=== PATIENT | female | born 1990 | race Hispanic/Latino ===

== ENCOUNTER 2021-02-10 16:55 | Outpatient (CLI) | payer MEDICAID | END 2021-02-11 10:00 | disposition home or self-care (01) | LOC: LAB 16:55 → APU 02-11 11:12 | PROVIDERS: ATTEND Advanced Practice Midwife | DX: O26.893 Other specified pregnancy related conditions, third trimester (principal); Z67.11 Type A blood, Rh negative; Z3A.28 28 weeks gestation of pregnancy | CPT/HCPCS: 86850; 86900; 86901; 96372; J2790 ==

== ENCOUNTER 2021-04-28 12:17 | Inpatient (IN) | payer MEDICAID ==
[2021-04-28] MEDS ORDERED: LACTATED RINGERS 2,000 ML ONE (15:02)
[2021-04-28] MEDS ORDERED: ePHEDrine SULFATE 50 MG/1 ML INJ IV PRN ×2 (15:26→16:42)
[2021-04-28] MEDS ORDERED: OXYTOCIN 10 UNIT/1 ML INJ IM PRN (15:26)
[2021-04-28] MEDS ORDERED: BUTORPHANOL 2 MG/1 ML INJ IV PRN (15:26)
[2021-04-28] MEDS ORDERED: ACETAMINOPHEN 325 MG TAB PO PRN ×2 (15:26→22:36)
[2021-04-28] MEDS ORDERED: miSOPROStol 200 MCG TAB PR PRN (15:26)
[2021-04-28] MEDS ORDERED: TERBUTALINE 1 MG/1 ML INJ SUB-Q PRN (15:26)
[2021-04-28] MEDS ORDERED: fentaNYL 100 MCG/2 ML INJ IV PRN (15:26)
[2021-04-28] MEDS ORDERED: LOPERAMIDE 2 MG CAP PO PRN (15:26)
[2021-04-28] MEDS ORDERED: CARBOPROST TROMETHAMINE 250 MCG/1 ML INJ IM PRN (15:26)
[2021-04-28] MEDS ORDERED: LIDOCAINE (2%) 20 MG/1 ML VIAL 20 ML MDV INFILTRATI ONE (15:26)
[2021-04-28] MEDS ORDERED: NalbUPHINE 10 MG/1 ML INJ IV PRN ×2 (15:26→16:42)
[2021-04-28] MEDS ORDERED: MINERAL OIL 30 ML ORAL LIQD PO PRN (15:26)
[2021-04-28] MEDS ORDERED: METHYLERGONOVINE MALEATE 0.2 MG/ML VIAL IM PRN (15:26)
[2021-04-28] MEDS ORDERED: LACTATED RINGERS 1,000 ML IV SCH (15:30)
[2021-04-28 15:44] LABS: Hematocrit 37.6 % (30.3-42.9); Hemoglobin 12.7 gm/dl (10.1-14.3); Mean Corpuscular HGB Conc 34 % (30-34); Mean Corpuscular Volume 87 fl (79-97); Platelet Count 260 K/mm3 (140-440); Red Cell Distribution Width 15.3 % (13.2-15.2)
[2021-04-28] MEDS ORDERED: OXYTOCIN DRIP 30 UNITS/500 ML BAG IV SCH ×2 (16:00)
[2021-04-28] MEDS ORDERED: ONDANSETRON 4 MG/2 ML INJ IV PRN ×2 (16:42→22:35)
[2021-04-28] MEDS ORDERED: LACTATED RINGERS 250 ML IV SOLN IV ONE (16:42)
[2021-04-28] MEDS ORDERED: NALOXONE 2 MG/2 ML INJ IV PRN (16:42)
[2021-04-28] MEDS ORDERED: diphenhydrAMINE 50 MG/ML VIAL IV PRN (16:42)
--- NOTE | 2021-04-28 16:43 | Anesthesia Consultation ---
Anesthesia Consult and Med Hx Date of service: 04/28/21 - Airway Anesthetic Teeth Evaluation: Good ROM Head & Neck: Adequate Mental/Hyoid Distance: Adequate Mallampati Class: Class II Intubation Access Assessment: Probably Good - Pulmonary Exam CTA: Yes - Cardiac Exam Cardiac Exam: RRR - Pre-Operative Health Status ASA Pre-Surgery Classification: ASA2 Proposed Anesthetic Plan: Epidural - Pulmonary Hx Smoking: No Hx Asthma: No Hx Sleep Apnea: No - Cardiovascular System Hx Hypertension: No Hx Heart Attack/AMI: No Hx Angina: No - Central Nervous System Hx Seizures: No Hx Psychiatric Problems: No - Gastrointestinal Hx Gastroesophageal Reflux Disease: No - Endocrine Hx Renal Disease: No Hx Liver Disease: No Hx Insulin Dependent Diabetes: No Hx Non-Insulin Dependent Diabetes: No Hx Hypothyroidism: No Hx Hyperthyroidism: No - Hematic Hx Anemia: No Hx Sickle Cell Disease: No - Other Systems Hx Alcohol Use: No Hx Obesity: Yes
--- NOTE | 2021-04-28 16:44 | Progress Note ---
Labor Epidural - Labor Epidural Start Time: 16:27 Stop Time: 16:35 Performed by:: LISA GRACIA Procedure: Patient is requesting epidural for labor and pain. H&P, labs were reviewed. Patient IDed, H&P reviewed, all questions and concerns were answered, and consent was signed. Timeout was performed at bedside. Patient in sitting position. Sterile prep and drape was performed. 3ml of 1% lidocaine skin wheal at L[3]- L [4]. 18-gauge [employer] epidural needle was advanced to loss of resistance with air technique 7cm. Negative CSF negative blood. Epidural catheter advanced to [12] centimeters. [negative] Aspiration [negative] test dose. Sterile dressing applied. Patient tolerated procedure.
[2021-04-28] MEDS ORDERED: fentaNYL-BUPIV 2 MCG/ML-0.125% 200 MCG/100 ML BAG EPIDURAL SCH (17:00)
--- NOTE | 2021-04-28 17:20 | History and Physical Report ---
History of Present Illness Date of examination: 04/28/21 Date of admission: April 28, 2021 Chief complaint: uterine contractions History of present illness: 31-year-old -0-0-1 at 39+5 weeks who presents to labor and delivery triage with a complaint of regular uterine contractions. The patient was initially 3 cm and progressed to 5 cm. She denied leakage of fluid. Her course is complicated by late presentation to care at 18 weeks estimated gestational age. The patient has a history of a prior delivery and elects to undergo a trial of labor. She has been counseled for delivery. Patient is GBS negative Past History Past Medical History: no pertinent history Past Surgical History: section Social history: single - Obstetrical History Expected Date of Delivery: 04/30/21 Actual Gestation: 39 Week(s) 5 Day(s) : 2 Para: 1 Hx # Term Pregnancies: 1 Number of Pregnancies: 0 Spontaneous Abortions: 0 Induced : 0 Number of Living Children: 1 Medications and Allergies Allergies Allergy/AdvReac Type Severity Reaction Status Date / Time No Known Allergies Allergy Verified 04/28/21 13:04 Active Meds: Active Medications Acetaminophen (Acetaminophen 325 Mg Tab) 650 mg PO Q4H PRN PRN Reason: Pain, Mild (1-3) Butorphanol Tartrate (Butorphanol 2 Mg/1 Ml Inj) 2 mg IV Q2H PRN PRN Reason: Pain , Severe (7-10) Carboprost Tromethamine (Carboprost Tromethamine 250 Mcg/1 Ml Inj) 250 mcg IM ONCE PRN PRN Reason: Uterine Bleeding Diphenhydramine HCl (Diphenhydramine 50 Mg/Ml Vial) 12.5 mg IV Q2H PRN PRN Reason: Itching Ephedrine Sulfate (Ephedrine Sulfate 50 Mg/1 Ml Inj) 10 mg IV Q2M PRN PRN Reason: Hypotension Fentanyl (Fentanyl 100 Mcg/2 Ml Inj) 100 mcg IV Q2H PRN PRN Reason: Pain,Severe (7-10) LABOR PAIN Last Admin: 04/28/21 16:17 Dose: 100 mcg Documented by: Oxytocin/Sodium Chloride (Pitocin/Ns 30 Unit/500ml) 30 units in 500 mls @ 2 mls/hr IV TITR MARITZA; Protocol Lactated Ringer's (Lactated Ringers) 1,000 mls @ 125 mls/hr IV DIRECT MARITZA Last Admin: 04/28/21 16:39 Dose: 125 mls/hr Documented by: Oxytocin/Sodium Chloride (Pitocin/Ns 30 Unit/500ml) 30 units in 500 mls @ 40 mls/hr IV TITR MARITZA; Protocol Fentanyl/Bupivacaine/Sodium Chlor (Fentanyl-Bupiv 2 Mcg/Ml-0.125%) 200 mcg in 100 mls @ 12 mls/hr EPIDURAL TITR MARITZA; Protocol Loperamide HCl (Loperamide 2 Mg Cap) 2 mg PO ONCE PRN PRN Reason: give with Hemabate Methylergonovine Maleate (Methylergonovine Maleate 0.2 Mg/Ml Vial) 0.2 mg IM ONCE PRN PRN Reason: Uterine Bleeding Mineral Oil (Mineral Oil 30 Ml Oral Liqd) 30 ml PO QHS PRN PRN Reason: Constipation Misoprostol (Misoprostol 200 Mcg Tab) 800 mcg ND ONCE PRN PRN Reason: Uterine Bleeding Nalbuphine HCl (Nalbuphine 10 Mg/1 Ml Inj) 2.5 mg IV Q2H PRN PRN Reason: Itching Naloxone HCl (Naloxone 2 Mg/2 Ml Inj) 0.2 mg IV Q5M PRN PRN Reason: Respiratory sedation Ondansetron HCl (Ondansetron 4 Mg/2 Ml Inj) 4 mg IV Q8H PRN PRN Reason: Nausea And Vomiting Oxytocin (Oxytocin 10 Unit/1 Ml Inj) 10 unit IM ONCE PRN PRN Reason: Uterine Bleeding Terbutaline Sulfate (Terbutaline 1 Mg/1 Ml Inj) 0.25 mg SUB-Q ONCE PRN PRN Reason: Hyperstimulation/Hypertonicity Review of Systems All systems: negative Genitourinary: pelvic pain, contractions - Vital Signs Vital signs: Vital Signs Pulse BP 80 123/68 04/28/21 12:55 04/28/21 12:55 Temp Pulse Resp BP Pulse Ox 98.2 F 72 16 95/62 100 04/28/21 14:13 04/28/21 17:15 04/28/21 14:13 04/28/21 17:11 04/28/21 17:15 - Physical Exam Breasts: Positive: deferred Cardiovascular: Regular rate Lungs: Positive: Clear to auscultation Abdomen: Positive: normal appearance - Obstetrical Cervical Dilatation: 5 Results Result Diagrams: 04/28/21 Unknown Abnormal lab results 04/28/21 Range/Units Unknown WBC 11.2 H (4.5-11.0) K/mm3 RDW 15.3 H (13.2-15.2) % All other labs normal. Assessment and Plan - Patient Problems (1) Active labor at term Current Visit: Yes Status: Acute Plan to address problem: will admit patient to labor and delivery for trial of labor (2) Previous delivery affecting Current Visit: Yes Status: Acute
[2021-04-28] MEDS ORDERED: MAGNESIUM HYDROXIDE (MOM) ORAL LIQD UDC PO PRN (22:35)
[2021-04-28] MEDS ORDERED: PROMETHAZINE 25 MG TAB PO PRN (22:35)
[2021-04-28] MEDS ORDERED: LANOLIN/ZINC/DIMETHICONE (LANSINOH) 7 GM TP PRN (22:35)
[2021-04-28] MEDS ORDERED: WITCH HAZEL/ GLYCERIN PAD TP PRN (22:35)
[2021-04-28] MEDS ORDERED: PROMETHAZINE 25 MG RECT SUPP PR PRN (22:35)
[2021-04-28] MEDS ORDERED: diphenhydrAMINE 25 MG CAP PO PRN (22:35)
[2021-04-28] MEDS ORDERED: HYDROcodone/ACETAMINOPHEN 5-325 MG TAB PO PRN (22:36)
--- NOTE | 2021-04-28 22:39 | Procedure Note ---
OB Delivery Note - Delivery Date of Delivery: 04/28/21 Surgeon: OLGA CARREON Estimated blood loss: 300cc - Vaginal Delivery presentation: vertex Delivery position: OA Delivery monitor: external FHT, external uterine, internal uterine Route of delivery: Delivery placenta: spontaneous Delivery cord: nuchal cord, 3 umbilical vessels Episiotomy: none Delivery laceration: none Anesthesia: epidural - A at 1 minute: 8 at 5 minutes: 9 (Weight 3.56 kg) Infant Gender: Female
[2021-04-29] MEDS: IBUPROFEN 600 MG TAB PO SCH ×4 (04:00→18:02)
--- NOTE | 2021-04-29 08:26 | Progress Note ---
Assessment and Plan A: ~10 hrs s/p[ at term P: Routine care Subjective - Subjective Date of service: 04/29/21 Principal diagnosis: s/p at term Interval history: Pt with no unusual complaints this morning. Patient reports: appetite normal, voiding normally, pain well controlled, no dizzy ambulation : doing well Objective - Vital Signs Latest vital signs: Vital Signs Temp Pulse Resp BP BP Pulse Ox Pulse Ox 04/29/21 04:00 18 04/29/21 01:13 98.7 F 79 18 92/43 96 04/29/21 00:50 96 04/28/21 23:50 84 95 04/28/21 23:45 79 96 04/28/21 23:41 79 92/50 04/28/21 23:40 82 96 04/28/21 23:35 89 95 04/28/21 23:30 95 H 98 04/28/21 23:27 93 H 92/51 04/28/21 23:25 87 98 04/28/21 23:20 88 96 04/28/21 23:15 93 H 95 04/28/21 23:12 87 94 04/28/21 23:10 78 97 04/28/21 23:05 92 H 99 04/28/21 23:00 89 98 04/28/21 22:56 85 98/53 04/28/21 22:55 89 100 04/28/21 22:51 97.6 F 19 04/28/21 22:50 98 H 97 04/28/21 22:45 87 99 04/28/21 22:41 95 H 96/50 04/28/21 22:40 102 H 98 04/28/21 22:35 102 H 98 04/28/21 22:33 96 H 102/50 04/28/21 22:31 104 H 94 04/28/21 22:30 99 H 98 04/28/21 22:25 127 H 98 04/28/21 22:20 127 H 96 04/28/21 22:15 116 H 99 04/28/21 22:10 86 99 04/28/21 22:05 95 H 98 04/28/21 22:00 97 H 99 04/28/21 21:55 102 H 99 04/28/21 21:53 66 92 04/28/21 21:50 94 H 98 04/28/21 21:45 84 98 04/28/21 21:40 82 100 04/28/21 21:35 95 H 97 04/28/21 21:33 87 121/52 04/28/21 21:30 86 98 04/28/21 21:25 81 98 04/28/21 21:20 82 99 04/28/21 21:15 93 H 99 04/28/21 21:10 102 H 98 04/28/21 21:05 93 H 99 04/28/21 21:00 89 99 04/28/21 20:55 80 97 04/28/21 20:50 64 98 04/28/21 20:45 84 98 04/28/21 20:40 64 98 04/28/21 20:35 64 99 04/28/21 20:30 65 99 04/28/21 20:27 72 91 04/28/21 20:25 76 98 04/28/21 20:20 62 98 04/28/21 20:15 62 99 04/28/21 20:10 74 98 04/28/21 20:05 69 98 04/28/21 20:00 61 97 04/28/21 19:55 81 96 04/28/21 19:50 62 97 04/28/21 19:45 57 L 99 04/28/21 19:40 61 99 04/28/21 19:35 74 98 04/28/21 19:32 80 109/63 04/28/21 19:30 83 99 04/28/21 19:25 77 97 04/28/21 19:20 78 99 04/28/21 19:16 72 103/63 04/28/21 19:15 79 98 04/28/21 19:11 79 94 04/28/21 19:10 75 97 04/28/21 19:05 88 100 04/28/21 19:01 90 142/71 04/28/21 19:00 88 99 04/28/21 18:59 97.8 F 18 04/28/21 18:55 80 100 04/28/21 18:50 76 100 04/28/21 18:46 66 121/83 04/28/21 18:45 72 98 04/28/21 18:40 80 99 04/28/21 18:35 87 100 04/28/21 18:32 96 H 113/70 04/28/21 18:30 91 H 115/68 100 04/28/21 18:25 91 H 99 04/28/21 18:20 78 99 04/28/21 18:15 85 118/71 100 04/28/21 18:10 70 98 04/28/21 18:05 82 97 04/28/21 18:00 70 100 04/28/21 17:58 70 112/62 04/28/21 17:55 79 100 04/28/21 17:52 60 105/59 04/28/21 17:50 72 99 04/28/21 17:46 64 102/60 04/28/21 17:45 65 100 04/28/21 17:41 62 102/57 04/28/21 17:40 63 99 04/28/21 17:36 79 104/58 04/28/21 17:35 85 100 04/28/21 17:31 69 105/57 04/28/21 17:30 69 99 04/28/21 17:28 62 104/58 04/28/21 17:25 67 100 04/28/21 17:21 68 95/55 04/28/21 17:20 93 H 100 04/28/21 17:17 80 89/52 04/28/21 17:15 72 100 04/28/21 17:11 77 95/62 04/28/21 17:10 73 100 04/28/21 17:06 75 96/58 04/28/21 17:05 69 100 04/28/21 17:01 89 95/59 04/28/21 17:00 82 99 04/28/21 16:57 73 98/57 04/28/21 16:55 77 98 04/28/21 16:53 75 104/58 04/28/21 16:50 82 97 04/28/21 16:46 69 98/60 04/28/21 16:45 77 97 04/28/21 16:43 85 99/61 04/28/21 16:42 86 91 04/28/21 16:40 81 97 04/28/21 16:39 88 114/60 04/28/21 16:38 82 119/78 04/28/21 16:36 89 124/90 04/28/21 16:35 95 H 96 04/28/21 16:33 80 129/76 94 04/28/21 16:31 89 128/71 04/28/21 16:30 86 98 04/28/21 16:27 88 93 04/28/21 16:25 73 96 04/28/21 16:00 97.7 F 18 0 L 04/28/21 15:58 84 123/62 04/28/21 14:37 85 94 04/28/21 14:36 69 96 04/28/21 14:31 72 96 04/28/21 14:29 82 94 04/28/21 14:26 80 98 04/28/21 14:23 90 93 04/28/21 14:21 88 97 04/28/21 14:17 77 94 04/28/21 14:16 89 96 04/28/21 14:13 98.2 F 16 04/28/21 14:11 83 97 04/28/21 14:07 82 93 04/28/21 14:06 87 95 04/28/21 14:01 68 96 04/28/21 14:00 83 127/70 04/28/21 13:56 62 96 04/28/21 13:51 71 98 04/28/21 13:50 79 94 04/28/21 13:46 87 99 04/28/21 13:43 80 94 04/28/21 13:41 80 96 04/28/21 13:36 90 92 04/28/21 13:31 80 97 04/28/21 13:26 95 H 95 04/28/21 13:21 89 96 04/28/21 13:16 79 96 04/28/21 13:14 88 94 04/28/21 13:11 88 97 04/28/21 13:06 83 97 04/28/21 13:04 72 94 04/28/21 13:01 82 94 04/28/21 12:57 82 94 04/28/21 12:56 84 97 04/28/21 12:55 80 123/68 Intake and Output 04/28/21 04/29/21 04/29/21 22:59 06:59 14:59 Output Total 200 500 Balance -200 -500 Output: Urine 200 500 Indwelling Catheter 200 500 Other: Total, Output Amount 200 500 Estimated Blood Loss 300 - Exam Breasts: Present: deferred Abdomen: Present: soft (obese ) Uterus: Present: fundal height at umbilicus Extremities: Present: edema (+1) - Labs Labs: Abnormal lab results 04/28/21 Range/Units Unknown WBC 11.2 H (4.5-11.0) K/mm3 RDW 15.3 H (13.2-15.2) %
--- NOTE | 2021-04-29 12:14 | Post Anesthesia Evaluation ---
- Post Anesthesia Evaluation Patient Participated: Yes Airway Patent: Yes Stable Respiratory Function: Yes Nausea/Vomiting: No Temp > 96.8F: Yes Pain Manageable: Yes Adequeate Hydration: Yes Anesthesia Complications: No Block Receding Appropriately: Yes Patient on Ventilator: No
[2021-04-29 13:59] LABS: Hematocrit 35.5 % (30.3-42.9); Hemoglobin 11.8 gm/dl (10.1-14.3)
[2021-04-30] MEDS: IBUPROFEN 600 MG TAB PO SCH ×4 (00:29→17:41)
[2021-04-30] MEDS ORDERED: TETANUS,DIPH,PERTUSS(ACELL) VACCINE 0.5 ML SYRINGE IM ONE (08:00)
[2021-04-30 18:06] VITALS: BP 118/75
--- NOTE | 2021-04-30 18:12 | Discharge Summary ---
Providers - Providers Date of Admission: 04/28/21 23:07 Date of discharge: 04/30/21 Attending physician: OLGA CARREON Primary care physician: OLGA CARREON Hospitalization Reason for admission: active labor Delivery: Episiotomy: none complications: none Discharge diagnosis: IUP at term delivered, Condition at discharge: Good Disposition: 01 HOME / SELF CARE / HOMELESS Plan - Discharge Medications Prescriptions: Ibuprofen [Motrin] 800 mg PO Q8HR PRN #40 tablet PRN Reason: Pain, Mild (1-3) HYDROcodone/APAP 5-325 [Cantil 5/325] 1 each PO Q6HR PRN #15 tablet PRN Reason: Pain - Provider Discharge Summary Activity: routine, no sex for 6 weeks, no heavy lifting 4 weeks, no strenuous exercise Diet: routine Instructions: routine Additional instructions: [] Smoking cessation referral if applicable(refer to patient education folder f or contact #) [] Refer to [facility]'s [facility] Booklet Call your doctor immediately for: * Fever > 100.5 * Heavy vaginal bleeding ( >1 pad per hour) * Severe persistent headache * Shortness of breath * Reddened, hot, painful area to leg or breast * Drainage or odor from incision. * Keep incision clean and dry at all times and follow doctor's instructions regarding bathing/showering - Follow up plan Follow up: OLGA CARREON MD [Primary Care Provider] - 6 Weeks Forms: [facility] Discharge Summary
== END 2021-04-30 18:50 | disposition home or self-care (01) | DRG 775 ==
LOC: TRG 12:17 → APU 12:19 → LD 15:54 → TRG 23:06 → LD 23:07 → OB 04-29 00:42
PROVIDERS: ADMIT Obstetrics & Gynecology; ATTEND Obstetrics & Gynecology
PROC: 10E0XZZ Delivery of Products of Conception, External Approach (ICD-10-PCS; principal; 2021-04-28)
PROC: 3E0R3BZ Introduction of Anesthetic Agent into Spinal Canal, Percutaneous Approach (ICD-10-PCS; 2021-04-28)
PROC: 00HU33Z Insertion of Infusion Device into Spinal Canal, Percutaneous Approach (ICD-10-PCS; 2021-04-28)
PROC: 3E0234Z Introduction of Serum, Toxoid and Vaccine into Muscle, Percutaneous Approach (ICD-10-PCS; 2021-04-30)
PROC: 30233S1 Transfusion of Nonautologous Globulin into Peripheral Vein, Percutaneous Approach (ICD-10-PCS; 2021-04-30)
DX: O69.81X0 Labor and delivery complicated by cord around neck, without compression, not applicable or unspecified (principal); O34.211 Maternal care for low transverse scar from previous cesarean delivery; Z37.0 Single live birth; O99.214 Obesity complicating childbirth; Z3A.39 39 weeks gestation of pregnancy; Z20.822 Contact with and (suspected) exposure to COVID-19; Z23 Encounter for immunization
CPT/HCPCS: 36415; 85014; 85018; 85027; 85461; 86592; 86850; 86900; 86901; 90471; 90715; 99211; G0378; G0463; J2405; J2590; J2790; J3010; J7120; U0003